=== PATIENT | male | born 1970 | race Caucasian/White ===

== ENCOUNTER 2016-06-25 07:56 | Outpatient (CLI) ==
[2015-08-02 09:41] VITALS: BMI 33.7
[2016-06-25 09:08] LABS: CREATININE 1.29 mg/dL (0.60-1.10)
== END 2016-06-25 07:57 | disposition home or self-care (01) ==
LOC: RAD 07:56
PROVIDERS: ATTEND Nurse Practitioner Family
DX: Q89.9 Congenital malformation, unspecified (principal); R10.33 Periumbilical pain
CPT/HCPCS: 36415; 82565

== ENCOUNTER 2016-06-27 07:16 | Outpatient (CLI) ==
[2015-08-02 09:41] VITALS: BMI 33.7
--- NOTE | 2016-06-27 08:40 | CT ---
EXAM: CT abdomen pelvis with contrast HISTORY: Umbilical knot with history of appendectomy and hip arthroplasties COMPARISON: None TECHNIQUE: Serial axial images of the abdomen pelvis were performed after 75 mL is of Omnipaque IV contrast was administered. These were obtained from the lung bases through the inferior pelvis. FINDINGS: The lung bases demonstrate a 0.4 cm pulmonary nodule in the right lower lobe on image 11. The liver is unremarkable. The gallbladder is distended. The adrenal glands are unremarkable. The spleen is unremarkable. The pancreas is unremarkable. The right kidney is unremarkable. The left kidney demonstrates mild enhancement and inflammatory changes of the central collecting system and t he urothelium. The stomach and small bowel in the abdomen and pelvis is unremarkable. The colon is unremarkable. The structures in the pelvis are poorly evaluated due to bilateral hip arthroplasties. Bilateral sm all inguinal hernias are present. There is a fat-containing umbilical hernia identified. The osseo us structures demonstrate mild degenerative disease. IMPRESSION: 1. Fat containing umbilical hernia with minimal central ground-glass or fluid within the fat sugges tive of mild inflammation. 2. Mild ground-glass and enhancement of the urothelium in the proximal left renal collecting system is nonspecific. There is no visualized stone identified. Findings likely represent inflammation ve rsus infection such as pyelitis/ureteritis. 3. 0.4 cm right pulmonary nodule. Follow-up CT chest is recommended in 3 - 6 months.
== END 2016-06-27 07:17 | disposition home or self-care (01) ==
LOC: RAD 07:16
PROVIDERS: ATTEND Nurse Practitioner Family
DX: Q89.9 Congenital malformation, unspecified (principal); R10.33 Periumbilical pain

== ENCOUNTER 2016-09-10 09:30 | Outpatient (CLI) ==
[2015-08-02 09:41] VITALS: BMI 33.7
--- NOTE | 2016-09-10 10:49 | DI ---
EXAM: Cervical spine five views HISTORY: Cervicalgia COMPARISON: None TECHNIQUE: Five views cervical spine were performed including oblique views FINDINGS: C7 poorly visualized on the lateral view. There is straightening of the normal cervical lordosis. Vertebral bodies normal in height. Marginal osteophyte formation. Multilevel uncoverteb ral and facet hypertrophy. 1 mm anterolisthesis of C4 on C5. No fracture visualized. Evaluation o f the neural foramen somewhat limited due to patient positioning with mild areas of multilevel neura l foraminal narrowing suggested. Prevertebral soft tissues appear normal. IMPRESSION: 1. Mild chronic discogenic degenerative disease and facet arthrosis. 1 mm anterolisthesis C4 on C5 . 2. Straightening of the normal cervical lordosis
--- NOTE | 2016-09-10 10:54 | DI ---
EXAM: Five views of the lumbar spine. History: Lower back pain. Findings: Partially visualized bilateral hip arthroplasty hardware. No acute fracture or subluxati on. Moderate disc space narrowing at L3-L4 and L5-S1 with endplate sclerosis and osteophyte formati on. Mild disc space narrowing seen elsewhere. Moderate to severe facet hypertrophy within the lowe r lumbar spine. Impression: No acute osseous abnormality of the lumbar spine. Degenerative changes.
== END 2016-09-10 09:31 | disposition home or self-care (01) ==
LOC: RAD 09:30
PROVIDERS: ATTEND Physician Assistant Medical
DX: M54.2 Cervicalgia (principal); M54.5 Low back pain

== ENCOUNTER 2016-09-30 13:33 | Outpatient (CLI) ==
[2015-08-02 09:41] VITALS: BMI 33.7
--- NOTE | 2016-09-30 14:17 | DI ---
EXAM: Single view of the pelvis and two views of bilateral hips. History: Bilateral hip pain. Comparison: Left hip radiograph 01/30/2013, right hip radiograph 12/04/2011 Findings: No acute fracture or dislocation. Stable and grossly intact bilateral hip arthroplasty h ardware. Stable heterotopic ossification adjacent to the superior left greater trochanter. Degener ative disc disease seen within the lower lumbar spine. Impression: No acute osseous abnormality. Stable and grossly intact hardware.
== END 2016-09-30 13:34 | disposition home or self-care (01) ==
LOC: LAB 13:33 → RAD 13:34
PROVIDERS: ATTEND Physician Assistant
DX: T84.84XD Pain due to internal orthopedic prosthetic devices, implants and grafts, subsequent encounter (principal)

== ENCOUNTER 2016-11-26 07:23 | Outpatient (CLI) ==
[2015-08-02 09:41] VITALS: BMI 33.7
[2016-11-26 08:02] LABS: BILIRUBIN,URINE Negative (NEGATIVE); KETONES,URINE Negative (NEGATIVE); LEUKOCYTE ESTERASE ,URINE Negative (NEGATIVE); NITRITE,URINE Negative (NEGATIVE); PROTEIN,URINE Negative (NEGATIVE); URINE, BLOOD Negative (NEGATIVE)
[2016-11-26 08:03] LABS: ADD URINE MICROSCOPIC NO
[2016-11-27 09:54] LABS: FOLLICLE STIMULATING HORMONE < 0.2 mIU/mL (1.5-12.4); LUTEINIZING HORMONE 0.1 mIU/mL (1.7-8.6)
[2016-11-27 11:49] LABS: PROLACTIN 31.2 ng/mL (4.0-15.2); TESTOSTERONE 412 ng/dL (348-1197)
[2016-11-28 08:37] LABS: FREE TESTOSTERONE 13.5 pg/mL (6.8-21.5)
[2016-11-28 08:38] LABS: ACTH 19.3 pg/mL (7.2-63.3); INSULIN-LIKE GROWTH FACTOR 1 157 ng/mL (67-205)
== END 2016-11-26 07:24 | disposition home or self-care (01) ==
LOC: LAB 07:23
PROVIDERS: ATTEND Physician Assistant Medical
DX: E23.3 Hypothalamic dysfunction, not elsewhere classified (principal); E29.1 Testicular hypofunction; E24.9 Cushing's syndrome, unspecified
CPT/HCPCS: 36415; 81001; 82024; 82533; 83001; 83002; 84146; 84305; 84402; 84403

== ENCOUNTER 2016-11-27 08:27 | Outpatient (CLI) ==
[2015-08-02 09:41] VITALS: BMI 33.7
[2016-11-28 07:26] LABS: REF CREATININE 1.17 mg/dL (0.76-1.27)
== END 2016-11-27 08:28 | disposition home or self-care (01) ==
LOC: LAB 08:27
PROVIDERS: ATTEND Internal Medicine Endocrinology, Diabetes & Metabolism
DX: E24.9 Cushing's syndrome, unspecified (principal)
CPT/HCPCS: 36415; 81050; 82530; 82575